=== PATIENT | female | born 2000 | race Caucasian/White ===

== ENCOUNTER 2023-05-05 13:51 | Outpatient (CLI) | payer SELFPAY ==
[2023-05-05] VITALS (23 sets, daily range): BP systolic 110–134; BP diastolic 63–79; PULSE 76–94; O2SAT 97–99; BMI 26.5
--- NOTE | 2023-05-05 14:24 | US_ITS ---
WS: [id number] BIOPHYSICAL PROFILE AND LIMITED OB. HISTORY: elevated FHT COMPARISON: None available. Presentation: Vertex. Cervix: Closed and normal length. Placenta: Limited visualization. Placenta is posterior and grade 2. No abruption. Grade: 2 HEART: FHR of 218BPM. Biophysical profile: Parameters are as follows: Breathin Movement: 2 Tone: 2 Fluid volume: 2 IMPRESSION: 1. Biophysical profile score: 8/8. 2. Normal amniotic fluid. 3. Posterior grade 2 placenta. No abruption. 4. Rapid heart rate. Dr. Rodgers was present during the ultrasound examination.
--- NOTE | 2023-05-05 15:40 | PM.OBGYPN ---
SURGICAL CODER Subjective Subjective: Interval history: 22 y.o. G1 care with nurse blanking press operator first visit to [facility] today at approximately 38 weeks nurse blanking press operator noted tachycardia in fetus, brought patient to [facility] for evaluation no other problems no pain, bleeding, fluid leakage + active movements no records available no early ultrasound for dating purposes PMHx: none Labor: Amniotic Membrane Status: Intact Vitals/I&O/Wt Last Vital Signs Pulse 77 05/05/23 15:38 BP 110/63 05/05/23 13:58 Pulse Ox 98 05/05/23 15:38 Weight last 48 hrs Weight 185 lb Physical Exam Narrative: patient comfortable, alert, in no distress Const: COMMON NORMALS: no acute distress, patient oriented x3, healthy appearing and well nourished Resp: COMMON NORMALS: normal respiratory effort, No retractions and clear to auscultation bilaterally AUSCULTATION: clear to auscultation bilaterally Cardio: COMMON NORMALS: regular rate and regular rhythm RATE: regular rate RHYTHM: regular rhythm GI: COMMON NORMALS: Soft to palpation and non-tender PALPATION: Yes Soft to palpation : OTHER: Cx: closed Neuro: COMMON NORMALS: patient oriented x3 Data Other data: OB sono: cephalic heart rate in 200s range active movements normal LORI Gr III placenta, no previa no ascites no pericardial effusion A&P Assessment and plan (1) : at approximately 38 weeks (2) No care in current : has been receiving care from nurse blanking press operator (3) tachycardia: fetus with heart rate in 200s range plan transfer patient to [facility] at [facility] for further evaluation and management Attestations Medical Necessity Statement*: patient at approx 38 weeks gestation with significant tachycardia Coding Level of Care Code Acute Code for Chg Fwd Diagnoses Z34.90 No care in current O09.30 tachycardia Time Spent (min) 120
--- NOTE | 2023-05-05 16:33 | PC.NURSE ---
After discussing treatment options with Dr. Rodgers, patient had agreed to transfer to [facility] at [facility]. This nurse went to the bedside to start an IV, patient stated that she would like to discuss with her support persons the option of traveling by private car. Educated patient that that was her right however she would not have access to medical care immediately in a private vehicle like she would if she transferred by ambulance. The patient and her support people called me back in after a few minutes and stated that they would be going by private vehicle. Educated that she would need to sigh AMA form. Patient stated that she was ok with that.
== END 2023-05-05 16:00 | disposition left against medical advice (07) ==
LOC: OPOB 13:52 → OBGYN 13:53
PROVIDERS: Visit Provider Obstetrics & Gynecology
DX: O09.30 Supervision of pregnancy with insufficient antenatal care, unspecified trimester (principal); O36.8390 Maternal care for abnormalities of the fetal heart rate or rhythm, unspecified trimester, not applicable or unspecified; Z3A.38 38 weeks gestation of pregnancy
CPT/HCPCS: 59025; 76819; 99211